=== PATIENT | female | born 1950 | race Caucasian/White ===

== ENCOUNTER 2019-06-16 14:55 | Emergency (ER) | payer MEDICARE ==
--- NOTE | 2019-06-16 16:46 | ED ---
Influenza-Like Illness - HPI Summary HPI Summary: This pt is a 69 Y/O F presenting to [facility] with a CC of an intermittent fever for the last week. She states that she has had fatigue, body ache all over, sore throat, cough, rhinorrhea, headache, chills, and dizziness. She states that she developed a chest pressure today that is intermittent and was seen by a Nurse Practitioner at 1345 and she recommended a CXR and lab work. She states that the pressure is described as a pressing. She states that she has been SOB since the onset. She also reports a stiff neck. Pt denies erythema of eyes, abdominal pain, N/V, dysuria, hematuria, edema, numbness, tingling, or rash. She has no aggravating or alleviating factor. She denies any productive cough. She has not traveled recently and has been present around her daughter who was recently diagnosed with Influenza A 3 weeks ago. She states that she currently smokes cigarettes and drinks alcohol. - History of Current Complaint [facility] Time Seen by Provider: 06/16/19 15:52 Hx Obtained From: Patient Onset/Duration: Sudden Onset, Lasting Weeks - 1, Still Present Severity: Moderate Associated Signs & Symptoms: Negative - erythema of eyes, abdominal pain, N/V, dysuria, hematuria, edema, numbness, tingling, or rash, Fever - low, Myalgia, Cough, Sore Throat, Nasal Congestion, Headache Related Hx: Possible Flu/Infectious Exposure - daughter 3 weeks ago, Smoking - cigarettes - Allergy/Home Medications Allergies/Adverse Reactions: Allergies Allergy/AdvReac Type Severity Reaction Status Date / Time No Known Allergies Allergy Verified 05/18/17 11:03 Home Medications: Home Medications DULoxetine DR CAP* [Cymbalta CAP*] 20 mg PO QAM 06/16/19 [History Confirmed ] DULoxetine DR CAP* [Cymbalta CAP*] 30 mg PO QAM 06/16/19 [History Confirmed ] Docusate CAP* [Colace Cap*] 100 mg PO DAILY PRN 06/16/19 [History Confirmed ] Levothyroxine TAB* [Synthroid TAB*] 50 mcg PO DAILY 06/16/19 [History Confirmed 06/16/19] Mirtazapine TAB* [Remeron TAB*] 15 mg PO BEDTIME 06/16/19 [History Confirmed ] Vitamin B Complex CAP* [B Complex CAP*] 1 cap PO DAILY 06/16/19 [History Confirmed 06/16/19] PMH/Surg Hx/FS Hx/Imm Hx Previously Healthy: Yes Endocrine/Hematology History: Reports: Hx Thyroid Disease Denies: Hx Diabetes Cardiovascular History: Denies: Hx Hypertension Respiratory History: Denies: Hx Asthma, Hx Chronic Obstructive Pulmonary Disease (COPD) GI History: Denies: Hx Ulcer Musculoskeletal History: Denies: Hx Osteoporosis - Cancer History Hx Chemotherapy: No Hx Radiation Therapy: No - Surgical History Surgical History: Yes - Immunization History Immunizations Up to Date: Yes Infectious Disease History: No Infectious Disease History: Denies: Hx Hepatitis, Hx Human Immunodeficiency Virus (HIV), Traveled Outside the [place] in Last 30 Days - Family History Known Family History: Negative: Cardiac Disease, Hypertension - Social History Occupation: Retired Lives: With Family Alcohol Use: Daily Hx Substance Use: No Substance Use Type: Reports: None Hx Tobacco Use: Yes Smoking Status (MU): Heavy Every Day Tobacco Smoker Type: Cigarettes Amount Used/How Often: 1.2 PPD Length of Time of Smoking/Using Tobacco: 25+ YEARS Review of Systems Positive: Fever, Chills, Fatigue Negative: Erythema ENT: Other - neck pain Positive: Sore Throat, Nasal Discharge Positive: Chest Pain Positive: Shortness Of Breath, Cough - nonproductive Negative: Abdominal Pain, Vomiting, Nausea Negative: dysuria, hematuria Positive: Myalgia Negative: Rash Neurological/Mental Status: Negative - tingling, Other - POSITIVE: dizziness Positive: Headache. Negative: Numbness All Other Systems Reviewed And Are Negative: Yes Physical Exam - Summary Physical Exam Summary: Constitutional: Well-developed, Well-nourished, Alert. (-) Distressed Skin: Warm, Dry HENT: Normocephalic; Atraumatic Eyes: Conjunctiva normal Neck: Musculoskeletal ROM normal neck. (-) JVD, (-) Stridor, (-) Tracheal deviation Cardio: Rhythm regular, rate normal, Heart sounds normal; Intact distal pulses; The pedal pulses are 2+ and symmetric. Radial pulses are 2+ and symmetric. (-) Murmur Pulmonary/Chest wall: Effort normal. (-) Respiratory distress, (-) Wheezes, (-) Rales Abd: Soft, (-) tenderness, (-) Distension, (-) Guarding, (-) Rebound Musculoskeletal: (-) Edema Lymph: (-) Cervical adenopathy Neuro: Alert, Oriented x3 Psych: Mood and affect Normal Triage Information Reviewed: Yes Vital Signs On Initial Exam: Initial Vitals Temp Pulse Resp BP Pulse Ox 97.1 F 79 16 108/62 100 06/16/19 15:06 06/16/19 15:06 06/16/19 15:06 06/16/19 15:06 06/16/19 15:06 Vital Signs Reviewed: Yes Procedures - Sedation Patient Received Moderate/Deep Sedation with Procedure: No Diagnostics - Vital Signs Vital Signs Temp Pulse Resp BP Pulse Ox 06/16/19 15:06 97.1 F 79 16 108/62 100 - Laboratory Result Diagrams: 06/16/19 17:30 06/16/19 17:30 Lab Statement: Any lab studies that have been ordered have been reviewed, and results considered in the medical decision making process. - Radiology CXR Radiology Interpretation Completed By: ED Physician Summary of Radiographic Findings: No acute pulmonary disease. Pending offical review. - EKG 1734 Cardiac Rate: Bradycardia - 55 BPM EKG Rhythm: Sinus Bradycardia ST Segment: Normal Ectopy: None Summary of EKG Findings: Sinus bradycardia at 55 bpm, normal FL, normal QRS, normal QTc, normal axis, normal ST, normal T-waves, normal EKG. Interpreted by Dr. Clancy at 1744 06/16/2019. Flu Symptom Course/Dx - Course Course Of Treatment: This pt is a 69 Y/O F presenting to [facility] with a CC of an intermittent fever for the last week. She states that she has had fatigue, body ache all over, sore throat, cough, rhinorrhea, headache, chills, and dizziness. She states that she developed a chest pressure today that is intermittent and was seen by a Nurse Practitioner at 1345 and she recommended a CXR and lab work. She states that the pressure is described as a pressing. She states that she has been SOB since the onset. Her PE found no acute abnormalities. Her EKG at 1734 found Sinus bradycardia at 55 bpm, normal FL, normal QRS, normal QTc , normal axis, normal ST, normal T-waves, normal EKG. Her labratory results are unremarkable. CXR: No acute pulmonary disease. On the phone she can be heard wheezing. She will be a sign out from Dr. Naty Clancy MD to Dr. Ayo Ocampo DO pending a Chest CTA, repeat troponin, and Disposition. - Diagnoses Provider Diagnoses: Chest pain, unspecified, Cough, Fever Discharge ED - Sign-Out/Discharge Documenting (check all that apply): Sign-Out Patient Signing out patient TO: Sergio Ocampo - Discharge Plan Condition: Stable Forms: COVID-19 Tested & Isolation Referrals: Bernice Soto NP [Primary Care Provider] - - Attestation Statements Document Initiated by Scribe: Yes Documenting Scribe: Jean Paul Soto Provider For Whom Scribe is Documenting (Include Credential): Praful Clancy MD Scribe Attestation: Jean Paul Mercedes, scribed for Praful Clancy MD on 06/16/19 at 1853. Status of Scribe Document: Ready
[2019-06-16 17:38] LABS: ABS Eosinophils 0.1 10^3/ul (0-0.6); ABS Lymphocytes 1.3 10^3/ul (1.0-4.8); ABS Monocytes 0.4 10^3/ul (0-0.8); ABS Neutrophils 2.7 10^3/ul (1.5-7.7); Eosinophil % 2.4 %; Hematocrit 37 % (35-47); Hemoglobin 12.8 g/dL (12.0-16.0); Lymphocyte % 27.7 %; Mean Corpuscular HGB Conc 35 g/dL (31-36); Mean Corpuscular Hemoglobin 35 pg (27-31); Mean Corpuscular Volume 99 fL (80-97); Mean Platelet Volume 8.7 fL (7.4-10.4); Nucleated Red Blood Cells % 0.1; Platelet Count 157 10^3/uL (150-450); Red Blood Count 3.72 10^6 /uL (3.70-4.87); Red Cell Distribution Width 12 % (10-15); White Blood Count 4.5 10^3/uL (3.5-10.8)
[2019-06-16 17:51] LABS: Rapid Strep Molecular Negative (Negative)
[2019-06-16 17:58] LABS: Influenza A Molecular Negative (Negative); Influenza B Molecular Negative (Negative); Troponin I 0.01 ng/mL (<0.03)
[2019-06-16 18:01] LABS: Albumin 4.1 g/dL (3.2-5.2); Albumin/Globulin Ratio 1.7 (1-3); BUN/Creatinine Ratio 18.4 (8-20); Calcium 9.5 mg/dL (8.6-10.3); EGFR Non-African American 75.2 (>60); Globulin 2.4 g/dL (2-4); Potassium 3.8 mmol/L (3.5-5.0); Total Bilirubin 0.6 mg/dL (0.2-1.0); Total Protein 6.5 g/dL (6.4-8.9)
[2019-06-16] MEDS ORDERED: Albuterol HFA INHALER* 8 gm MDI INH ONE (18:53)
[2019-06-16] MEDS ORDERED: Iohexol 350* (CONTRAST) 500 ML MDV IV ONE (19:02)
--- NOTE | 2019-06-16 19:35 | ED ---
Progress - Progress Note Progress Note: Patient is a sign out from Dr. Clancy to DO Damaris, at change of shifts at 1900 on 06/16/19, pending CTA chest and disposition. Course/Dx - Course Course Of Treatment: This pt is a 69 Y/O F presenting to [facility] with a CC of an intermittent fever for the last week. She states that she has had fatigue, body ache all over, sore throat, cough, rhinorrhea, headache, chills, and dizziness. She states that she developed a chest pressure today that is intermittent and was seen by a Nurse Practitioner at 1345 and she recommended a CXR and lab work. She states that the pressure is described as a pressing. She states that she has been SOB since the onset. Her PE found no acute abnormalities. Her EKG at 1734 found Sinus bradycardia at 55 bpm, normal CT, normal QRS, normal QTc , normal axis, normal ST, normal T-waves, normal EKG. Her labratory results are unremarkable. CXR: No acute pulmonary disease. On the phone she can be heard wheezing. She will be a sign out from Dr. Naty Clancy MD to Dr. Ayo Ocampo DO pending a Chest CTA, repeat troponin, and Disposition. CTA CHEST/THORAX IMPRESSION: 1. No pulmonary emboli. No additional findings to correlate with patient's symptomatology. 2. Incompletely characterized hepatic lesion for which a nonemergent multiphase liver CT or MRI is recommended. Diagnosis is chest wall pain and URI. Patient will be discharged home, follow up with PCP in 2-3 days. Patient understands and agrees with this plan. - Diagnoses Provider Diagnoses: Chest pain, URI (upper respiratory infection) Is Visit Related: No Discharge ED - Sign-Out/Discharge Documenting (check all that apply): Patient Departure - discharge home, Receiving Sign-Out Receiving patient FROM: Praful Clancy - patient is a signout from Dr. Praful Clancy to Timoteo Ocampo DO, at change of shifts at 1900 on 06/16/19. - Discharge Plan Condition: Stable Disposition: HOME Patient Education Materials: Chest Pain (ED), Upper Respiratory Infection (ED) Forms: COVID-19 Tested & Isolation Referrals: Bernice Soto NP [Primary Care Provider] - Additional Instructions: Follow up with your primary care provider in 2-3 days. Please self-quarantine. Return to the Emergency Room if you experience new or worsened symptoms. - Billing Disposition and Condition Condition: STABLE Disposition: Home - Attestation Statements Document Initiated by Jolene: Yes Documenting Scribe: Stveie Hogan Provider For Whom Jolene is Documenting (Include Credential): Timoteo Ocampo DO Scribe Attestation: IStevie, scribed for Timoteo Ocampo DO on 06/17/19 at 0004. Scribe Documentation Reviewed: Yes Provider Attestation: The documentation as recorded by the scribe, Stevie Hogan accurately reflects the service I personally performed and the decisions made by me, Timoteo Ocampo DO Status of Scribe Document: Viewed Diagnostics - Vital Signs Vital Signs Temp Pulse Resp BP Pulse Ox 06/16/19 22:52 69 16 98 06/16/19 22:09 14 122/72 06/16/19 22:00 8 06/16/19 21:39 54 12 129/79 99 06/16/19 21:09 60 21 149/86 99 06/16/19 21:06 23 06/16/19 20:39 55 12 142/85 100 06/16/19 20:09 61 16 134/81 98 06/16/19 20:00 55 14 98 06/16/19 19:39 56 15 128/80 99 06/16/19 19:09 58 18 145/80 99 06/16/19 19:00 57 14 98 06/16/19 18:39 73 19 133/83 89 06/16/19 18:09 72 21 144/85 99 06/16/19 18:00 56 10 99 06/16/19 17:39 65 120/89 97 06/16/19 17:10 64 99 06/16/19 17:09 64 118/72 99 06/16/19 15:06 97.1 F 79 16 108/62 100 - Laboratory Lab Results: Lab Results 06/16/19 06/16/19 06/16/19 Range/Units 17:30 17:30 17:30 WBC 4.5 (3.5-10.8) 10^3/uL RBC 3.72 (3.70-4.87) 10^6 /uL Hgb 12.8 (12.0-16.0) g/dL Hct 37 (35-47) % MCV 99 H (80-97) fL MCH 35 H (27-31) pg MCHC 35 (31-36) g/dL RDW 12 (10-15) % Plt Count 157 (150-450) 10^3/uL MPV 8.7 (7.4-10.4) fL Neut % (Auto) 59.6 % Lymph % (Auto) 27.7 % [place] % (Auto) 9.4 % Eos % (Auto) 2.4 % Baso % (Auto) 0.9 % Absolute Neuts (auto) 2.7 (1.5-7.7) 10^3/ul Absolute Lymphs (auto) 1.3 (1.0-4.8) 10^3/ul Absolute Monos (auto) 0.4 (0-0.8) 10^3/ul Absolute Eos (auto) 0.1 (0-0.6) 10^3/ul Absolute Basos (auto) 0.0 (0-0.2) 10^3/ul Absolute Nucleated RBC 0.0 10^3/ul Nucleated RBC % 0.1 Sodium 138 (135-145) mmol/L Potassium 3.8 (3.5-5.0) mmol/L Chloride 104 (101-111) mmol/L Carbon Dioxide 27 (22-32) mmol/L Anion Gap 7 (2-11) mmol/L BUN 14 (6-24) mg/dL Creatinine 0.76 (0.51-0.95) mg/dL Est GFR ( Amer) 91.0 (>60) Est GFR (Non-Af Amer) 75.2 (>60) BUN/Creatinine Ratio 18.4 (8-20) Glucose 108 H (70-100) mg/dL Lactic Acid 0.8 (0.5-2.0) mmol/L Calcium 9.5 (8.6-10.3) mg/dL Total Bilirubin 0.60 (0.2-1.0) mg/dL AST 18 (13-39) U/L ALT 14 (7-52) U/L Alkaline Phosphatase 54 (34-104) U/L Troponin I 0.01 (<0.03) ng/mL Total Protein 6.5 (6.4-8.9) g/dL Albumin 4.1 (3.2-5.2) g/dL Globulin 2.4 (2-4) g/dL Albumin/Globulin Ratio 1.7 (1-3) Coronavirus (PCR) Influenza A (Rapid) (Negative) Influenza B (Rapid) (Negative) Group A Strep Rapid (Negative) 06/16/19 06/16/19 06/16/19 Range/Units 17:30 17:30 17:45 WBC (3.5-10.8) 10^3/uL RBC (3.70-4.87) 10^6 /uL Hgb (12.0-16.0) g/dL Hct (35-47) % MCV (80-97) fL MCH (27-31) pg MCHC (31-36) g/dL RDW (10-15) % Plt Count (150-450) 10^3/uL MPV (7.4-10.4) fL Neut % (Auto) % Lymph % (Auto) % [place] % (Auto) % Eos % (Auto) % Baso % (Auto) % Absolute Neuts (auto) (1.5-7.7) 10^3/ul Absolute Lymphs (auto) (1.0-4.8) 10^3/ul Absolute Monos (auto) (0-0.8) 10^3/ul Absolute Eos (auto) (0-0.6) 10^3/ul Absolute Basos (auto) (0-0.2) 10^3/ul Absolute Nucleated RBC 10^3/ul Nucleated RBC % Sodium (135-145) mmol/L Potassium (3.5-5.0) mmol/L Chloride (101-111) mmol/L Carbon Dioxide (22-32) mmol/L Anion Gap (2-11) mmol/L BUN (6-24) mg/dL Creatinine (0.51-0.95) mg/dL Est GFR ( Amer) (>60) Est GFR (Non-Af Amer) (>60) BUN/Creatinine Ratio (8-20) Glucose (70-100) mg/dL Lactic Acid (0.5-2.0) mmol/L Calcium (8.6-10.3) mg/dL Total Bilirubin (0.2-1.0) mg/dL AST (13-39) U/L ALT (7-52) U/L Alkaline Phosphatase (34-104) U/L Troponin I (<0.03) ng/mL Total Protein (6.4-8.9) g/dL Albumin (3.2-5.2) g/dL Globulin (2-4) g/dL Albumin/Globulin Ratio (1-3) Coronavirus (PCR) Pending Influenza A (Rapid) Negative (Negative) Influenza B (Rapid) Negative (Negative) Group A Strep Rapid Negative (Negative) 06/16/19 Range/Units 21:51 WBC (3.5-10.8) 10^3/uL RBC (3.70-4.87) 10^6 /uL Hgb (12.0-16.0) g/dL Hct (35-47) % MCV (80-97) fL MCH (27-31) pg MCHC (31-36) g/dL RDW (10-15) % Plt Count (150-450) 10^3/uL MPV (7.4-10.4) fL Neut % (Auto) % Lymph % (Auto) % [place] % (Auto) % Eos % (Auto) % Baso % (Auto) % Absolute Neuts (auto) (1.5-7.7) 10^3/ul Absolute Lymphs (auto) (1.0-4.8) 10^3/ul Absolute Monos (auto) (0-0.8) 10^3/ul Absolute Eos (auto) (0-0.6) 10^3/ul Absolute Basos (auto) (0-0.2) 10^3/ul Absolute Nucleated RBC 10^3/ul Nucleated RBC % Sodium (135-145) mmol/L Potassium (3.5-5.0) mmol/L Chloride (101-111) mmol/L Carbon Dioxide (22-32) mmol/L Anion Gap (2-11) mmol/L BUN (6-24) mg/dL Creatinine (0.51-0.95) mg/dL Est GFR ( Amer) (>60) Est GFR (Non-Af Amer) (>60) BUN/Creatinine Ratio (8-20) Glucose (70-100) mg/dL Lactic Acid (0.5-2.0) mmol/L Calcium (8.6-10.3) mg/dL Total Bilirubin (0.2-1.0) mg/dL AST (13-39) U/L ALT (7-52) U/L Alkaline Phosphatase (34-104) U/L Troponin I 0.01 (<0.03) ng/mL Total Protein (6.4-8.9) g/dL Albumin (3.2-5.2) g/dL Globulin (2-4) g/dL Albumin/Globulin Ratio (1-3) Coronavirus (PCR) Influenza A (Rapid) (Negative) Influenza B (Rapid) (Negative) Group A Strep Rapid (Negative) Result Diagrams: 06/16/19 17:30 06/16/19 17:30 Lab Statement: Any lab studies that have been ordered have been reviewed, and results considered in the medical decision making process. - Radiology CXR Radiology Interpretation Completed By: ED Physician Summary of Radiographic Findings: No acute pulmonary disease. Pending offical review. - CT CTA Chest CT Interpretation Completed By: Radiologist Summary of CT Findings: IMPRESSION: 1. No pulmonary emboli. No additional findings to correlate with patient's symptomatology. 2. Incompletely characterized hepatic lesion for which a nonemergent multiphase liver CT or MRI is recommended. An ED physician has reviewed this report. - EKG 9129 Cardiac Rate: Bradycardia - 55 BPM EKG Rhythm: Sinus Bradycardia ST Segment: Normal Ectopy: None Summary of EKG Findings: Sinus bradycardia at 55 bpm, normal CT, normal QRS, normal QTc, normal axis, normal ST, normal T-waves, normal EKG. Interpreted by Dr. Clancy at 1749 06/16/2019.
[2019-06-16 23:18] VITALS: BP 124/72
== END 2019-06-16 23:16 | disposition home or self-care (01) ==
LOC: ED 14:55
DX: R07.9 Chest pain, unspecified (principal); J06.9 Acute upper respiratory infection, unspecified; E03.9 Hypothyroidism, unspecified; Z20.828 Contact with and (suspected) exposure to other viral communicable diseases; Z79.890 Hormone replacement therapy; Z79.899 Other long term (current) drug therapy; F17.210 Nicotine dependence, cigarettes, uncomplicated
CPT/HCPCS: 36415; 71045; 71275; 80053; 83605; 84484; 85025; 87651; 93005; 99284; Q9967; U0002